=== PATIENT | female | born 1990 | race Caucasian/White ===

== ENCOUNTER 2017-05-03 09:13 | Emergency (ER) | payer OTHER, SELFPAY ==
[2017-05-03 09:21] VITALS: BP 110/60; PULSE 70; RESP 20; TEMP 97.9; O2SAT 98
--- NOTE | 2017-05-03 09:42 | ED PDOC ---
HPI: Female Pain Time Seen by Provider: 05/03/17 09:27 Chief Complaint (Nursing): Female Genitourinary History Per: Patient Onset/Duration Of Symptoms: Days (3) Current Symptoms Are (Timing): Still Present Severity: Mild Pain Scale Rating Of: 2 Quality Of Discomfort: Cramping Associated Symptoms: denies: Nausea, Vomiting, Diarrhea, Urinary Symptoms Additional Complaint(s): Loer abd crampy pain x 3 days. Denioes vaginal bleeding No urinary sxs. Home preg positive. LMP 1 month ago Abnormal Vaginal Bleeding: No Past Medical History Vital Signs: Last Vital Signs Temp 97.9 F 05/03/17 09:18 Pulse 70 05/03/17 09:18 Resp 20 05/03/17 09:18 BP 110/60 05/03/17 09:18 Pulse Ox 98 05/03/17 09:18 - Medical History PMH: No Chronic Diseases - Family History Family History: States: Unknown Family Hx - Home Medications Home Medications: Ambulatory Orders Medication Instructions Recorded traMADol [Ultram] 50 mg PO Q6H PRN #15 tab 05/14/15 Prednisone 50 mg PO DAILY #5 tablet 09/28/15 Prednisone 20 mg PO BID #10 tablet 10/24/15 - Allergies Allergies/Adverse Reactions: Allergies Allergy/AdvReac Type Severity Reaction Status Date / Time No Known Allergies Allergy Verified 05/14/15 13:21 Review of Systems Constitutional: Negative for: Fever Gastrointestinal: Positive for: Abdominal Pain. Negative for: Nausea, Vomiting , Diarrhea Genitourinary Female: Negative for: Dysuria, Frequency, Vaginal Bleeding Musculoskeletal: Positive for: Back Pain Physical Exam - Physical Exam Appears: Positive for: Non-toxic, No Acute Distress Skin: Positive for: Normal Color, Warm, DRY Gastrointestinal/Abdominal: Positive for: Bowel Sounds, Soft, Tenderness (Mild suprapubic) Back: Positive for: Normal Inspection. Negative for: L CVA Tenderness, R CVA Tenderness Extremity: Positive for: Normal ROM Neurologic/Psych: Positive for: Alert, Oriented - Laboratory Results Result Diagrams: 05/03/17 10:04 05/03/17 10:04 - ECG O2 Sat by Pulse Oximetry: 98 Disposition - Clinical Impression Clinical Impression: Threatened - Patient ED Disposition Is Patient to be Admitted: No Counseled Patient/Family Regarding: Studies Performed, Diagnosis, Need For Followup, Rx Given - Disposition Referrals: [facility] [Outside] [facility] [Outside] Disposition: Routine/Home Disposition Time: 11:24 Condition: FAIR Instructions: Threatened Miscarriage (ED) Forms: [employer] (Beninese) Print Language: VENEZUELAN
[2017-05-03 10:16] LABS: BASO % 0.4 % (0.0-2.0); EOS # 0.2 K/uL (0.0-0.7); EOS % 3.9 % (0.0-4.0); HEMATOCRIT 40.9 % (34.0-47.0); LYMPH # 2.6 K/uL (1.0-4.3); LYMPH % 41.8 % (20.0-40.0); MEAN CELL VOLUME 86.9 fl (81.0-99.0); MEAN CORPUSCULAR HEMOGLOBIN 29.5 pg (27.0-31.0); MEAN PLATELET VOLUME 9.1 fl (7.2-11.7); MONO # 0.4 K/uL (0.0-0.8); NEUT % 47.9 % (50.0-75.0); NRBC % 0.1 % (0.0-0.0); RED CELL DISTRIBUTION WIDTH 12.7 % (11.5-14.5); WHITE BLOOD COUNT 6.3 K/uL (4.8-10.8)
[2017-05-03 10:43] LABS: ALB/GLOB RATIO 1.5 (1.0-2.1); ALKALINE PHOSPHATASE 40 U/L (38-126); ALT/SGPT 31 U/L (9-52); AST/SGOT 24 U/L (14-36); BILIRUBIN,TOTAL 0.9 mg/dl (0.2-1.3); BLOOD UREA NITROGEN 11 mg/dl (7-17); CALCIUM 8.6 mg/dL (8.4-10.2); CARBON DIOXIDE 23 mmol/L (22-30); CHLORIDE 102 mmol/L (98-107); GFR AFRICAN-AMERICAN > 60; GLUCOSE,RANDOM 82 mg/dL (65-105); POTASSIUM 3.8 MMOL/L (3.6-5.0); SODIUM 137 mmol/l (132-148); TOTAL PROTEIN 8.3 G/DL (6.3-8.2)
--- NOTE | 2017-05-03 11:08 | US ---
HISTORY: r/o ectopic ; LMP is dated 03/28/2017 as per patient and suggests a 5 week 1 day gestational age at this time. COMPARISON: None available. TECHNIQUE: Transvaginal pelvic ultrasonography was performed in longitudinal and transverse projections. FINDINGS: UTERUS: Uterus is anteverted and measures 8.8 x 6.2 x 4.5 cm with a gestational sac identified within the endometrial cavity measuring 1.8 x 10.7 x1.3 cm containing, yolk sac and pole. cardiac activity is recorded 109 beats per minute. No sonographic evidence to suggest hemorrhage related to the decidual reaction. Myometrial is remarkable for for a solitary, small left anterior fundal subserosal myoma measuring 0.9 x 0.7 x 0.5 cm, slightly hypoechoic compared to the surrounding parenchyma and with limited posterior acoustic shadowing associated. CERVIX: Cervix appears unremarkable with the low cervical length measuring 4.4 cm. RIGHT OVARY: Measures 4.0 x 4.3 x 3.5 cm. No solid mass. Normal flow. A 2.8 x 2.5 x 2.2 cm simple cyst identified at the right rib potentially representing a corpus luteum cyst. Small follicles are otherwise noted at the right ovary. LEFT OVARY: Measures 3.4 x 2.9 x 1.4 cm. No solid mass. Normal flow. FREE FLUID: No significant free fluid noted. OTHER FINDINGS: None. IMPRESSION: A single viable intrauterine gestation is identified with cardiac activity of 109 beats per minute an aneurysm ultrasonic age of 5 weeks 5 days which agrees with LMP derived dates noted above. No hemorrhage grossly evident related to the decidual reaction at this time. Likely right corpus luteum cyst. Clinical and possible sonographic follow-up are advised.
== END 2017-05-03 12:03 | disposition home or self-care (01) ==
LOC: H.ER 09:13
DX: O20.0 Threatened abortion (principal); Z3A.01 Less than 8 weeks gestation of pregnancy

== ENCOUNTER 2017-05-15 11:13 | Emergency (ER) | payer OTHER ==
[2017-05-15 11:33] VITALS: BP 110/40; PULSE 67; RESP 18; TEMP 98.2; O2SAT 100
--- NOTE | 2017-05-15 11:55 | ED PDOC ---
HPI: Female Pain Time Seen by Provider: 05/15/17 11:20 Chief Complaint (Nursing): Abdominal Pain History Per: Patient Onset/Duration Of Symptoms: Days (13) Current Symptoms Are (Timing): Intermittent Episodes Severity: Mild Pain Scale Rating Of: 2 Quality Of Discomfort: Cramping Additional Complaint(s): Lower abd crampingx 2 weeks. Seen in ED with same with US showing IUP. Denies vag bleeding. No dysuria No NVD Abnormal Vaginal Bleeding: No Past Medical History Vital Signs: Last Vital Signs Temp 98.2 F 05/15/17 11:29 Pulse 67 05/15/17 11:29 Resp 18 05/15/17 11:29 BP 110/40 L 05/15/17 11:29 Pulse Ox 100 05/15/17 11:29 - Medical History PMH: No Chronic Diseases - Family History Family History: States: Unknown Family Hx - Home Medications Home Medications: Ambulatory Orders Medication Instructions Recorded traMADol [Ultram] 50 mg PO Q6H PRN #15 tab 05/14/15 Prednisone 50 mg PO DAILY #5 tablet 09/28/15 Prednisone 20 mg PO BID #10 tablet 10/24/15 - Allergies Allergies/Adverse Reactions: Allergies Allergy/AdvReac Type Severity Reaction Status Date / Time No Known Allergies Allergy Verified 05/14/15 13:21 Review of Systems Gastrointestinal: Positive for: Abdominal Pain Genitourinary Female: Negative for: Dysuria, Frequency, Vaginal Bleeding Musculoskeletal: Positive for: Back Pain Physical Exam - Physical Exam Appears: Positive for: Non-toxic, No Acute Distress Skin: Positive for: Normal Color, Warm, DRY Gastrointestinal/Abdominal: Positive for: Bowel Sounds, Soft. Negative for: Tenderness Pelvic Exam: Positive for: External Exam Normal, No Masses. Negative for: Active Bleeding, Blood, Tender Adnexa, Tender Uterus - ECG O2 Sat by Pulse Oximetry: 100 Disposition - Clinical Impression Clinical Impression: Round ligament pain - Patient ED Disposition Is Patient to be Admitted: No Counseled Patient/Family Regarding: Studies Performed, Diagnosis, Need For Followup - Disposition Referrals: Provider KENY, [Primary Care Provider] - [facility] [Outside] Disposition: Routine/Home Disposition Time: 12:58 Condition: FAIR Instructions: Abdominal Pain in (ED) Forms: [employer] (Albanian) Print Language: [place] ISLAND[place]
== END 2017-05-15 13:05 | disposition home or self-care (01) ==
LOC: H.ER 11:13 → SUPCPDRO 11:13 → H.ER 13:05
DX: O26.899 Other specified pregnancy related conditions, unspecified trimester (principal)

== ENCOUNTER 2017-07-24 10:10 | Emergency (ER) | payer SELFPAY ==
[2017-07-24 10:13] VITALS: RESP 16; TEMP 98; BMI 22.4
--- NOTE | 2017-07-24 10:31 | ED PDOC ---
HPI: Abdomen Time Seen by Provider: 07/24/17 10:14 Chief Complaint (Nursing): Abdominal Pain Chief Complaint (Provider): Abdominal pain History Per: Patient Additional Complaint(s): 27 yo female, no PMH, , presents to ED at 18 weeks with complaints of having lower abdominal pain on and off x 1 week, denies vaginal bleeding or LOF. Pain is worse at night and with movement. Pt has not been taking anything for pain Past Medical History Reviewed: Nursing Documentation, Vital Signs Vital Signs: Last Vital Signs Temp 98.0 F 07/24/17 10:12 Pulse 81 07/24/17 10:12 Resp 16 07/24/17 10:12 BP 109/54 L 07/24/17 10:12 Pulse Ox 100 07/24/17 10:31 - Medical History PMH: No Chronic Diseases - Surgical History Surgical History: No Surg Hx - Family History Family History: States: Unknown Family Hx - Living Arrangements Living Arrangements: With Family - Social History Current smoker - smoking cessation education provided: No Alcohol: None Drugs: Denies - Home Medications Home Medications: Ambulatory Orders Medication Instructions Recorded traMADol [Ultram] 50 mg PO Q6H PRN #15 tab 05/14/15 Prednisone 50 mg PO DAILY #5 tablet 09/28/15 Prednisone 20 mg PO BID #10 tablet 10/24/15 - Allergies Allergies/Adverse Reactions: Allergies Allergy/AdvReac Type Severity Reaction Status Date / Time No Known Allergies Allergy Verified 07/24/17 10:15 Review of Systems ROS Statement: Except As Marked, All Systems Reviewed And Found Negative Gastrointestinal: Positive for: Abdominal Pain Physical Exam - Reviewed Nursing Documentation Reviewed: Yes Vital Signs Reviewed: Yes - Physical Exam Appears: Positive for: Well, Non-toxic, No Acute Distress Head Exam: Positive for: ATRAUMATIC, NORMAL INSPECTION, NORMOCEPHALIC Skin: Positive for: Normal Color, Warm, DRY Eye Exam: Positive for: EOMI, Normal appearance, PERRL ENT: Positive for: Normal ENT Inspection Neck: Positive for: Normal, Painless ROM Cardiovascular/Chest: Positive for: Regular Rate, Rhythm Respiratory: Positive for: CNT, Normal Breath Sounds Gastrointestinal/Abdominal: Positive for: Normal Exam, Bowel Sounds, Soft. Negative for: Tenderness Back: Positive for: Normal Inspection Extremity: Positive for: Normal ROM Neurologic/Psych: Positive for: Alert, Oriented - ECG O2 Sat by Pulse Oximetry: 100 Medical Decision Making Medical Decision Making: US 18 w SLIUP, HR 141 Dip (-) nites, leuks or blood Given Tylenol PO for pain, good relief obtained Disposition - Clinical Impression Clinical Impression: Abdominal pain during - Patient ED Disposition Is Patient to be Admitted: No - Disposition Disposition: Routine/Home Disposition Time: 12:47 Condition: STABLE Additional Instructions: Tylenol safe in for pain, take as directed Instructions: Abdominal Pain in (ED) Forms: [employer] (Hebrew)
[2017-07-24 12:58] LABS: SQUAMOUS EPITHIAL 1 /hpf (0-5); URINE BACTERIA RARE (<OCC); URINE BILIRUBIN NEGATIVE (NEGATIVE); URINE BLOOD NEGATIVE (NEGATIVE); URINE CLARITY SLIGHTY-CLOUDY (Clear); URINE COLOR STRAW (YELLOW); URINE GLUCOSE (UA) NEG (Normal); URINE LEUKOCYTE ESTERASE NEG Leu/uL (Negative); URINE NITRATE NEGATIVE (NEGATIVE); URINE PROTEIN NEGATIVE (NEGATIVE); URINE UROBILINOGEN 0.2-1.0 mg/dL (0.2-1.0)
--- NOTE | 2017-07-24 12:59 | US ---
PROCEDURE: OB Pelvic Ultrasound HISTORY: 18 weeks pain. LMP 03/28/2017. COMPARISON: None available. FINDINGS: UTERUS: Single Live intrauterine gestation. BPD: 4.3 centimeter compatible with estimated gestational age of 19 weeks, 0 days. HC: 15.4 cm compatible with estimated gestational age of 18 weeks, 3 days. HC: 13.3 cm compatible with estimated gestational age of 18 weeks, 5 days. FL: 2.7 cm compatible with estimated gestational age of 18 weeks, 2 days. Presentation: Variable. Placenta: Posterior. age (Ultrasound estimated): 18 weeks, 4 days Date of delivery (Ultrasound estimated) : 12/21/2017 Heart rate: 141 bpm. Katie-gestational hemorrhage: None. CERVIX: Long and closed. No cervical abnormality seen. RIGHT OVARY: Measures 4.4 x 2.7 x 2.7 cm. No mass. Normal flow. LEFT OVARY: Measures 3.3 x 2.5 x 2.1 cm. No mass. Normal flow. FREE FLUID: None. OTHER FINDINGS: None. IMPRESSION: Single live intrauterine gestation with average gestational age of 18 weeks, 4 days. heart rate 141 beats per minute.
[2017-07-24 13:00] VITALS: BP 110/60; PULSE 80; O2SAT 98
== END 2017-07-24 12:59 | disposition home or self-care (01) ==
LOC: H.ER 10:10
DX: O26.892 Other specified pregnancy related conditions, second trimester (principal); Z3A.18 18 weeks gestation of pregnancy

== ENCOUNTER 2017-12-24 17:53 | Inpatient (IN) | payer MEDICAID, SELFPAY ==
[2017-12-24] MEDS ORDERED: Lactated Ringer's 1,000 ML IV ONE (18:41)
[2017-12-24] MEDS ORDERED: ceFAZolin IV 2 gm in Dextrose 2 GM/50 ML BAG IVPB ONE (18:41)
[2017-12-24] MEDS ORDERED: Oxytocin 30 units/LR 500ML 30 U/500 ML BAG IV ONE (18:58)
[2017-12-24] MEDS ORDERED: Lactated Ringer's 1,000 ML IV SCH (19:00)
[2017-12-24 19:07] LABS: BASO % 0.5 % (0.0-2.0); EOS # 0.1 K/uL (0.0-0.7); EOS % 1.2 % (0.0-4.0); LYMPH # 2.1 K/uL (1.0-4.3); LYMPH % 29.5 % (20.0-40.0); MEAN CELL VOLUME 90.4 fl (81.0-99.0); MEAN CORPUSCULAR HEMOGLOBIN 31.2 pg (27.0-31.0); MEAN CORPUSCULAR HGB CONC 34.5 g/dL (33.0-37.0); MEAN PLATELET VOLUME 8.4 fl (7.2-11.7); MONO # 0.4 K/uL (0.0-0.8); MONO % 6.3 % (0.0-10.0); NEUT # 4.4 K/uL (1.8-7.0); NEUT % 62.5 % (50.0-75.0); RBC 3.84 Mil/uL (3.80-5.20); RED CELL DISTRIBUTION WIDTH 13.4 % (11.5-14.5); WHITE BLOOD COUNT 7.1 K/uL (4.8-10.8)
[2017-12-24] MEDS ORDERED: Morphine 5 mg/10 ml preservative-free Inj(Duramorph) ONE (19:18)
[2017-12-24] MEDS ORDERED: ePHEDrine 50 mg/ml Inj ONE (19:18)
[2017-12-24] MEDS ORDERED: Phenylephrine 10 mg/ml Inj ONE (19:18)
[2017-12-24] MEDS ORDERED: ceFAZolin IV 2 gm in Dextrose 0 GM/0 ML BAG IVPB ONE (19:34)
[2017-12-24] MEDS ORDERED: DiphenhydrAMINE 50 mg/ml Inj IVP PRN (21:29)
[2017-12-24] MEDS ORDERED: Oxycodone/Acetaminophen 5/325 mg Tab PO PRN ×2 (21:35)
[2017-12-24] MEDS ORDERED: Simethicone 80 mg Chewtab PO SCH (22:00)
--- NOTE | 2017-12-24 22:55 | OBDS ---
DELIVERY PERSONNEL Delivery Doctor: Francisco Petersen MD Machine Grinder: Marivel Gillespie RN (Annotations: Data stored by [facility] on behalf of user) Anesthesiologist: Dr. Vela Resident: Dr. Kerri Orourke MATERNAL INFORMATION Delivery Anesthesia: Spinal Medications in Delivery: Pitocin Provider Comments: Preop Diagnosis: 40.1wk; decreased fm; nonreassuring status postop diagnosis: same proced: prim cd surg:orossetos 1st asst: lisa pgy2 2nd asst: s:lele pgy2 anesth: dr vela- spinal ebl 700cc complic: none findings: viable female; clear amniotic fluid; 6mh61my; 9_9;terminal meconium; cord ph 7.32 mccoy to drainage pt to rr. neon to rr w/ pt LABOR SUMMARY EDC: 12/23/2017 00:00 No. Babies in Womb: 1 Attempted: No Labor Anesthesia: Spinal LABOR INFORMATION Oxytocin: N/A Group B Beta Strep: Negative Antibiotics # of Doses: 1 Antibiotics Time of Last Dose: 1944 Steroids Given: None Reason Steroids Not Administered: Not Applicable MEMBRANES Membranes Rupture Method: Artificial Rupture of Membranes: 12/24/2017 20:48 Length of Rupture (hrs): 0.00 Amniotic Fluid Color: Clear Amniotic Fluid Amount: Moderate STAGES OF LABOR Stage 3 hrs: 0 Stage 3 min: 1 CSECTION DELIVERY Primary Indication: Nonreassuring Status CSection Urgency: Non Elective CSection Incidence: Primary Labor: No Labor CSection Incision: Lower Uterine Transverse BABY A INFORMATION Delivery Date/Time: 12/24/2017 20:48 Method of Delivery: Born in Route : No : N/A Forceps: N/A Vacuum Extraction: N/A Shoulder Dystocia : No SHOULDER DYSTOCIA BABY A Infant Delivery Date/Time: 12/24/2017 20:48 PLACENTA INFORMATION BABY A Placenta Delivery Time : 12/24/2017 20:49 Placenta Method of Delivery: Manual Removal Placenta Status: Delivered SCORES BABY A Heart Rate 1 min: >100 bpm Resp Effort 1 min: Good Cry Reflex Irritability 1 min: Cough or Sneeze or Pulls Away Muscle Tone 1 min: Active Motion Color 1 min: Body [place] [address], Extremities Blue Resuscitation Effort 1 min: Tactile Stimulation SCORE 1 MIN: 9 Heart Rate 5 min: >100 bpm Resp Effort 5 min: Good Cry Reflex Irritability 5 min: Cough or Sneeze or Pulls Away Muscle Tone 5 min: Active Motion Color 5 min: Body [address], Extremities Blue Resuscitation Effort 5 min: N/A SCORE 5 MIN: 9 INFORMATION BABY A Gestational Age at Delivery: 40.1 Gestational Status: Term Infant Outcome : Liveborn Infant Condition : Stable Sex: Female WEIGHT/LENGTH BABY A Birthweight (gms): 3670 Infant Weight (lb): 8 Weight (oz): 1 CORD INFORMATION BABY A No. Cord Vessels: 3 Nuchal Cord : N/A Cord Blood Taken: Yes Suction: Mouth; Nose ASSESSMENT BABY A Complications: None Physical Findings at Delivery: Within Normal Limits Infant Respirations: Appears Normal Forest Fire Officer/ALS Called : No Care By: Vee Mason Rn Transferred To: Remains with Mother
--- NOTE | 2017-12-24 23:42 | OBHP ---
Datetime: 12/24/2017 18:47 IP Adm Impression: Postterm, intrauterine IP Admit Plan: Admit to unit; Initiate Section protocol Admit Comment, IP Provider: Lalito [id number] Patient is a 40.1 weeks gestation with an DOM of 12/23/17 confirmed with a 14 week U/S done on 06/30/17. She was sent from the [facility] for decreased movement since this morning mother stated she only felt 4 kicks since the morning. Dr. Manning is her provider. Patient had been having a f ew contractions, denies vaginal bleeding, denies LOF. Patient had water at 4pm and a donut to eat to day. Denies dizziness, headaches, blurry vision, chest pain, sob, NVDC, or burning on urination. PNC: Patient is up to date on care and labs are unremarkable OBHx: denies any complications Gynhx: last sexual activity was 2 months ago PMhx: Anemia Meds: Iron pills and prenatals Allergies: NKDA Fhx: None Social Hx: Denies alcohol, smoking or drug use Surg hx:None Hosp: None I: 40 week IUP decreased movement A/P - IVF, CBC , type and screen, type and cross - C section - Monitor tracings Jenny Woods MD PGY-[address] Gudino obh attending addendum Clarification of above: Pt presented to [facility] w/ c/o decreased fm today. prolonged nst nr w/ episode of min to absent variab ility. she was referred to [facility] for further eval. she denies srom, ctxs, abd pain or vag bleeding. o: nst nr w/ episode of min to absent variability i: decrease fm nonreactive nst w/ persistent episode of min to absent variability p: findings d/w pt and fob and option of CD discussed vs induction. an informed consent was obtain ed for CD. Pelvic Type - PN: Adequate Extremities - PN: Normal Abdomen - PN: Normal Back - PN: Normal Breast - PN: Not Done Lungs - PN: Normal Heart - PN: Normal HEENT - PN: Normal General - PN: Normal Presentation-Admit: Vertex FHR - Baseline A Provider: 135 Contraction Comments Provider: irreg not appreciated by pt EGA AdmitDate IP: 40.1 Vital Signs Provider: Reviewed IP Chief Complaint: Decreased movement; evaluation NICHD Variability Prov Fetus A: Minimal - Undetectable to <5bpm NICHD Accel Fetus A IP Provider: 10X10 NICHD Decel Fetus A IP Provider: None (Annotations: Data stored by CPN on behalf of user) Dilatation, Provider: 0 Effacement, Provider: 0 Station, Provider: -3 Genitourinary Exam: Normal
--- NOTE | 2017-12-24 23:47 | OBADHP ---
Datetime: 12/24/2017 18:47 Admit Comment, IP Provider: Aryan [id number] Patient is a 40.1 weeks gestation with an DOM of 12/23/17 confirmed with a 14 week U/S done on 06/30/17. She was sent from the [facility] for decreased movement since this morning mother stated she only felt 4 kicks since the morning. Dr. Manning is her provider. Patient had been having a f ew contractions, denies vaginal bleeding, denies LOF. Patient had water at 4pm and a donut to eat to day. Denies dizziness, headaches, blurry vision, chest pain, sob, NVDC, or burning on urination. PNC: Patient is up to date on care and labs are unremarkable OBHx: denies any complications Gynhx: last sexual activity was 2 months ago PMhx: Anemia Meds: Iron pills and prenatals Allergies: NKDA Fhx: None Social Hx: Denies alcohol, smoking or drug use Surg hx:None Hosp: None I: 40 week IUP decreased movement A/P - IVF, CBC , type and screen, type and cross - C section - Monitor tracings Jenny Woods MD PGY-[address] Gudino ob attending addendum Clarification of above: Pt presented to [facility] w/ c/o decreased fm today. prolonged nst nr w/ episode of min to absent variab ility. she was referred to [facility] for further eval. she denies srom, ctxs, abd pain or vag bleeding. o: nst nr w/ episode of min to absent variability i: decrease fm nonreactive nst w/ persistent episode of min to absent variability p: findings d/w pt and fob and option of CD discussed vs induction. an informed consent was obtain ed for CD. Pelvic Type - PN: Adequate Extremities - PN: Normal Abdomen - PN: Normal Back - PN: Normal Breast - PN: Not Done Lungs - PN: Normal Heart - PN: Normal HEENT - PN: Normal General - PN: Normal Presentation-Admit: Vertex FHR - Baseline A Provider: 135 Contraction Comments Provider: irreg not appreciated by pt Vital Signs Provider: Reviewed IP Chief Complaint: Decreased movement; evaluation NICHD Variability Prov Fetus A: Minimal - Undetectable to <5bpm NICHD Accel Fetus A IP Provider: 10X10 NICHD Decel Fetus A IP Provider: None (Annotations: Data stored by CPN on behalf of user) Dilatation, Provider: 0 Effacement, Provider: 0 Station, Provider: -3 Genitourinary Exam: Normal EGA AdmitDate IP: 40.1 IP Adm Impression: Postterm, intrauterine IP Admit Plan: Admit to unit; Initiate Section protocol
[2017-12-25] MEDS ORDERED: Lactated Ringer's 1,000 ML IV SCH ×2 (00:45→01:06)
[2017-12-25] MEDS ORDERED: Oxycodone/Acetaminophen 5/325 mg Tab PO PRN ×2 (01:06)
[2017-12-25] MEDS ORDERED: DiphenhydrAMINE 50 mg/ml Inj IVP PRN (01:06)
[2017-12-25] MEDS: Simethicone 80 mg Chewtab PO SCH ×4 (04:00→22:03)
[2017-12-25 06:32] LABS: MEAN CORPUSCULAR HEMOGLOBIN 32.4 pg (27.0-31.0); MEAN CORPUSCULAR HGB CONC 36.4 g/dL (33.0-37.0); RBC 3.22 Mil/uL (3.80-5.20); WHITE BLOOD COUNT 7.9 K/uL (4.8-10.8)
[2017-12-25 06:53] LABS: HEMOGLOBIN 10.4 g/dL (12.0-16.0)
--- NOTE | 2017-12-25 08:22 | OBPPN ---
Datetime: 12/25/2017 07:06 PP Pain Prov: Within normal limits PP Nausea Prov: Denies PP Flatus Prov: No PP BM Prov: No PP Breasts Prov: Not Done PP Heart Prov: Normal PP Lungs Prov: Normal PP Abdomen/Uterus Prov: Normal PP Lochia Prov: Normal PP Vulva/Perineum Prov: Normal PP CVA Tenderness Prov: Not Done PP Extremities Prov: Normal PP C/S Incision Prov: Normal PP Progress Prov: Normal PP Impression Prov: Normal progression PP Plan Prov: Continue present management PP Progress Note Prov: S: 27 YO delivered female via primary stat on 12/24/17 for non-r eassuring FHR. Pt is seen and examined by bedside this AM, no overnight events. FOB and baby present by bedside. Pt is voiding via mccoy, mild abdominal pain, prn pain meds availible as needed. Encourag ed to ambulate later today. [place] has decreased since delivery. No flatus/BM. Denies palpatations, n/ v/d/c, chills and fevers. 0 O: VS: stable, pt remains afebrile GEN: NAD Cardio: S1S2, no murmurs Lungs: clear breath sounds b/l, no wheezing Abdomen: BS+, +tenderness to palpation areas around the incision. Dressing intact, remains dry. No erythema, edema noted in areas surrounding the dressing. Uterus is firm and at the level of the umbi licus. Appropriate tenderness. EXT: No edema, calves nontender NEURO/PSYCH: AAOx3, no grossly focal deficits, preserved affect and mood. Assessment/Plan: 27 YO delivered female via primary on 12/24/17 for non-reassuring FH R. Doing well POD 1. -OOB with caution -Mccoy to be d/c this AM -Dressing to be removed later today (after 24hrs) -SCDs for DVT prophylaxis, encouraged ambulating -Percocet and Motrin for pain as needed -Senakot 17.2mg po QHS -post CBC for h/h 10.4/28.7 -Encourage Citlali Garcia, PGY II OB Hospitalist Addendum: Pt seen and examined by me. Agree w/ above. POD 1 s/p c/s for NRFHT, do ing well, breast feeding. Incision w/ clean bandage. Advance diet as tolerated. OOB today. (ES) Vital Signs Provider PP: Reviewed; Within Normal Limits
[2017-12-25] MEDS: Multivitamin With Minerals Tab PO SCH (08:23)
[2017-12-25] MEDS ORDERED: Multivitamin With Minerals Tab PO SCH (09:00)
--- NOTE | 2017-12-25 20:23 | OP ---
PROCEDURE DATE: 12/24/2017 PREOPERATIVE DIAGNOSES: 1. A 40.1-week gestation. 2. Decreased movement. 3. Nonreassuring status. POSTOPERATIVE DIAGNOSES: 1. A 40.1-week gestation. 2. Decreased movement. 3. Nonreassuring status. PROCEDURE: Primary low transverse section. SURGEON: Jose Ramon Gudino M.D. TECHNICAL REP: Caesar Manning, PGY-2 SECOND PHARMACEUTICAL DEVELOPMENT TECHNICIAN: Jennifer Garcia, PGY-2 TYPE OF ANESTHESIA: Spinal. ANESTHESIA ADMINISTERED BY: Dr. Vela. ESTIMATED BLOOD LOSS: 700 mL. COMPLICATIONS: None. FINDINGS: Showed a viable female with clear amniotic fluid and terminal meconium, weight was 8 pound 12 ounces. 's of 9 and 9, cord pH 7.32. Drains: Bhakta catheter placed for drainage. Destiantion: The patient sent to recovery room and to recovery room. INDICATIONS: The patient is a 27-year-old female 1 at 40.1 weeks, who presented to L&D for further observation . She had presented to [facility] clinic earlier today with complaints of decreased movement since the morning. The patient was placed on the monitor and had an extended NST, which was found to be nonreactive with segments of minimal to absent variability. She was referred to to labor and delivery for further evaluation and observation. Her NST on labor and delivery was noted to have segments of minimal to absent variability. Followed by some variability, the NST remained nonreactive. Findings of minimal to absent variability discussed, decreased movement and patient being remote from delivery. A section was discussed with the patient versus induction and she and spouse agreed to primary section and informed consent was obtained. DESCRIPTION OF PROCEDURE: The patient was taken to the operating room where she underwent her spinal anesthesia. She was then placed in a dorsal supine position with a leftward tilt and a Bhakta catheter was placed patricio drainage. She was prepped and draped in the sterile fashion. A Pfannenstiel skin incision was made with the scalpel and this was carried out to the underlying fascia, which was incised in the midline and extended bilaterally. The inferior rectus fascial edge was grasped with Kochers and the underlying rectus muscle was dissected off. The same procedure was performed along the superior rectus fascial edge. The peritoneum was identified, tented upward and incised superiorly and inferiorly. The bladder blade was placed and the bladder flap was created using sharp and blunt dissection. A low uterine transverse incision was made and the incision was extended digitally followed by use of bandage scissors in a curvilinear fashion. The amniotic membrane was ruptured. Clear fluid was noted and the was found to be in cephalic presentation and delivered. Some terminal meconium was noted with delivery. The mouth and nares were suctioned. The cord was clamped and cut and the baby was handed off to the awaiting sales audit clerk. The placenta was expressed and some more terminal meconium was noted. The uterus was exteriorized and cleared of all clots and debris. The uterine incision was reapproximated with 0 Vicryl in a running locked fashion followed by an imbricated stitch of O Monocryl. The abdomen was irrigated and cleared of all clots and debris. The uterus was returned to the abdomen and the pelvic cavity was irrigated and cleared of all clots and debris. The uterine incision was reinspected and good hemostasis was confirmed. The peritoneum was reapproximated with 2-0 Vicryl in a running fashion. The fascia was reapproximated with 0 Vicryl in a running fashion beginning the left lateral corner going to the midline and another stitch beginning the right lateral corner going to the midline. The wound was irrigated. Good hemostasis confirmed. The subcutaneous tissue was reapproximated with 2-0 plain interrupted sutures. The skin was reapproximated with 3-0 Vicryl in a subcuticular fashion. Steri strips were applied. All sponge, lap, and needle counts were correct and the patient returned to recovery room in satisfactory condition. Jose Ramon Gudino MD QUINN
[2017-12-26] MEDS: Lansinoh for Breast Feeding Mothers TP PRN ×2 (00:44→09:03)
[2017-12-26] MEDS: Simethicone 80 mg Chewtab PO SCH ×4 (04:15→22:08)
[2017-12-26] MEDS: Multivitamin With Minerals Tab PO SCH (08:08)
--- NOTE | 2017-12-26 10:47 | OBPPN ---
Datetime: 12/26/2017 08:14 PP Pain Prov: Within normal limits PP Nausea Prov: Denies PP Flatus Prov: Yes PP BM Prov: No PP Heart Prov: Normal PP Lungs Prov: Normal PP Abdomen/Uterus Prov: Normal PP Lochia Prov: Normal PP CVA Tenderness Prov: Normal PP Extremities Prov: Normal PP C/S Incision Prov: Normal PP Progress Prov: Normal PP Comments Phys Exam Prov: hgb 10.4 PP Impression Prov: Normal progression PP Plan Prov: Continue present management PP Progress Note Prov: POD 2 27 y/o now seen and examined at bedside s/p primary due to non-reassuring FHT on P OD 2. Pt reports pain at the site and pain is controlled with pain medications. Pt is pina ating po diet well. Pt reports passing gas per rectum but no BM yet. Voiding w/o difficulty. Denies chest pain, dyspnea, headache, dizziness or calf pain. Physical Exam: General: A_O, resting comfortably in bed, NAD HEENT: oral mucosa moist Lungs: CTA B/L, no wheezing, rhonchi or rales CVS: RRR, normal S1, S2 ABD: ND, +BS; Incision: Incision clean, dry and intact. No induration, redness or fluctuation. Steri strips int act, no dehiscence EXT: no edema, negative Prieto's sign Neuro/psych: AAOX3 Assessment: 27 yo now s/p primary doing well on POD 2 Plan: Continue regular diet as tolerated. SCD for DVT prophylaxis Percocet and Ibuprofen for pain management Colace for constipation consultation Encourage and ambulation. Kavya, pgy-2 Case d/w on-call OB Hospitalist obh attending addendum: pt seen _ examihed by me. agree w/ above assessment and plan. benefits of reinforced . IP PP Procedures: None Vital Signs Provider PP: Reviewed; Within Normal Limits
--- NOTE | 2017-12-26 21:41 | CP.PCM.PN ---
Subjective - Date & Time of Evaluation Date of Evaluation: 12/26/17 Time of Evaluation: 21:31 - Subjective Subjective: Anesthesiology Note: This 27 year old female second day post spinal anesthesia for section has headache occipital in location ,worse on sitting ,relieved by lying down.This is possibly post dural puncture headache. Will treat conservatively and re-evaluate in am. Ashish Muñiz MD Objective - Vital Signs/Intake and Output Vital Signs (last 24 hours): Temp Pulse Resp BP Pulse Ox 98.4 F 68 18 116/72 100 12/24/17 19:30 12/24/17 19:30 12/24/17 19:30 12/24/17 19:30 12/24/17 19:30 - Medications Medications: Current Medications Diphenhydramine HCl (Benadryl) 50 mg IVP Q6 PRN PRN Reason: Itching / Pruritus Ibuprofen (Motrin Tab) 600 mg PO Q6H PRN PRN Reason: Pain, Mild (1-3) Last Admin: 12/26/17 04:14 Dose: 600 mg Ketorolac Tromethamine (Toradol) 30 mg IVP Q6 PRN PRN Reason: For PCEA Breakthrough Pain Lanolin (Lansinoh For Breast Feeding Mothers) 1 applic TP Q4 PRN PRN Reason: nipple pain Last Admin: 12/26/17 09:03 Dose: 1 applic Multivitamins/Minerals (Therapeutic-M Tab) 1 tab PO DAILY PRASANNA Last Admin: 12/26/17 08:08 Dose: 1 tab Ondansetron HCl (Zofran Inj) 4 mg IVP Q6 PRN PRN Reason: Nausea/Vomiting Oxycodone/Acetaminophen (Percocet 5/325 Mg Tab) 1 tab PO Q4 PRN PRN Reason: Pain, moderate (4-7) Stop: 12/27/17 21:36 Last Admin: 12/26/17 20:05 Dose: 1 tab Oxycodone/Acetaminophen (Percocet 5/325 Mg Tab) 2 tab PO Q4 PRN PRN Reason: Pain, severe (8-10) Stop: 12/27/17 21:36 Sennosides (Senokot Tab) 17.2 mg PO HS PRASANNA Last Admin: 12/25/17 22:02 Dose: 17.2 mg Simethicone (Mylicon Chew Tab) 80 mg PO Q6 PRASANNA Last Admin: 12/26/17 16:07 Dose: 80 mg - Labs Labs: 12/25/17 04:45
[2017-12-26] MEDS: Lactated Ringer's 1,000 ML IV SCH (22:47)
[2017-12-27] MEDS: Simethicone 80 mg Chewtab PO SCH ×4 (04:49→22:04)
[2017-12-27] MEDS: Lactated Ringer's 1,000 ML IV SCH ×3 (06:29→19:00)
[2017-12-27] MEDS: Multivitamin With Minerals Tab PO SCH (08:11)
[2017-12-27] MEDS: Apap-Butalbital-Caffeine 325-50-40mg Tab PO PRN ×2 (08:12→20:50)
--- NOTE | 2017-12-27 10:41 | OBPPN ---
Datetime: 12/27/2017 06:17 PP Pain Prov: Within normal limits PP Nausea Prov: Denies PP Flatus Prov: Yes PP BM Prov: Yes PP Heart Prov: Normal PP Lungs Prov: Normal PP Abdomen/Uterus Prov: Normal PP Lochia Prov: Normal PP Impression Prov: Normal progression PP Plan Prov: Discharge PP Progress Note Prov: POD3 s/p stat due to decreased FM is c/o headache exacerbated by sitting upright and walking, and alleviated by laying supine. She reports headaches do not interfe re with feeding. Patient denied any n/v/dizziness, neck stiffness, tinnitus or visual changes. Patien t states lochia is like menses, + for flatus _ BM,and breast feeding is going well. P/E: Patient laying in supine position Cardio: s1s2 auscultated, no murmurs Resp: Breath sounds auscultated Bilaterally Abd: fundus at UB Ext: nontender A/P: POD3 s/p stat due to decreased FM 1. Encourage breast feeding. 2. Contraception discussed. 3. Ambulate as tolerated. 4. DC today. 5. Ibuprofen 600mg PO Q6 PRN and percocet 5-325 mg PO Q4 PRN Case discussed with attending Ena Peralta, PGY-[address] Norman: Patient continues to have a spinal SIDDIQI - will continue to watch and delay di scharge until tomorrow. If symptoms are not improved, patient may need blood patch Vital Signs Provider PP: Reviewed
[2017-12-28] MEDS: Lactated Ringer's 1,000 ML IV SCH ×4 (00:52→21:30)
[2017-12-28] MEDS: Apap-Butalbital-Caffeine 325-50-40mg Tab PO PRN ×4 (04:15→21:09)
[2017-12-28] MEDS: Simethicone 80 mg Chewtab PO SCH ×4 (05:30→22:01)
[2017-12-28] MEDS: Multivitamin With Minerals Tab PO SCH (08:54)
[2017-12-28] MEDS: Lansinoh for Breast Feeding Mothers TP PRN (08:55)
--- NOTE | 2017-12-28 10:32 | CP.PCM.PN ---
Subjective - Date & Time of Evaluation Date of Evaluation: 12/28/17 Time of Evaluation: 10:15 - Subjective Subjective: Patient has positional headache after spinal for c section on Wednesday. The pain has improved but she still complains of pressure-like pain at the top of the head when upright. She denies nausea, vomiting, photo or phonophobia. She's able to ambulate to the bathroom but it's uncomfortable. R/B/A were explained to her, she elected to undergo sphenopalatine ganglion block. Consent was signed and placed in the chart. Patient was placed in a supine position, with shoulder roll. Using a 1.5-inch 20G catheter, 1.5cc of 4% lidocaine was deposited into each nares. After 3 minutes, a Q-tip soaked in .5% bupivacaine was inserted until resistance was met into each nares. Patient tolerated procedure well. After 5 minutes, the Q- tip was removed. Vital signs were stable throughout. Will follow. Objective - Vital Signs/Intake and Output Vital Signs (last 24 hours): Temp Pulse Resp BP Pulse Ox 98.4 F 68 18 116/72 100 12/24/17 19:30 12/24/17 19:30 12/24/17 19:30 12/24/17 19:30 12/24/17 19:30 - Medications Medications: Current Medications Acetaminophen/Butalbital/Caffeine (Fioricet) 1 tab PO Q4 PRN PRN Reason: Headache Last Admin: 12/28/17 08:52 Dose: 1 tab Diphenhydramine HCl (Benadryl) 50 mg IVP Q6 PRN PRN Reason: Itching / Pruritus Lactated Ringer's (Lactated Ringer's) 1,000 mls @ 200 mls/hr IV .Q5H PRASANNA Last Admin: 12/28/17 05:43 Dose: 200 mls/hr Ibuprofen (Motrin Tab) 600 mg PO Q6H PRN PRN Reason: Pain, Mild (1-3) Last Admin: 12/28/17 05:51 Dose: 600 mg Ketorolac Tromethamine (Toradol) 30 mg IVP Q6 PRN PRN Reason: For PCEA Breakthrough Pain Lanolin (Lansinoh For Breast Feeding Mothers) 1 applic TP Q4 PRN PRN Reason: nipple pain Last Admin: 12/28/17 08:55 Dose: 1 applic Multivitamins/Minerals (Therapeutic-M Tab) 1 tab PO DAILY PRASANNA Last Admin: 12/28/17 08:54 Dose: 1 tab Ondansetron HCl (Zofran Inj) 4 mg IVP Q6 PRN PRN Reason: Nausea/Vomiting Sennosides (Senokot Tab) 17.2 mg PO HS PRASANNA Last Admin: 12/27/17 22:03 Dose: 17.2 mg Simethicone (Mylicon Chew Tab) 80 mg PO Q6 PRASANNA Last Admin: 12/28/17 05:30 Dose: 80 mg - Labs Labs: 12/25/17 04:45 - Neck Exam Neck Exam: Full ROM Additional comments: Nontender Assessment and Plan - Assessment and Plan (Free Text) Assessment: 27 yo woman w/ likely post-dura puncture headache. She's s/p sphenopalatine ganglion block. Her headache is not severe enough to warrant blood patch and associated risks. - patient may be discharged today if headache improves from sphenopalatine ganglion block - supportive care, patient can return as outpatient for further management as necessary
--- NOTE | 2017-12-28 11:06 | OBPPN ---
Datetime: 12/28/2017 07:39 PP Pain Prov: Within normal limits PP Nausea Prov: Present PP Flatus Prov: Yes PP BM Prov: No PP Heart Prov: Normal PP Lungs Prov: Normal PP Lochia Prov: Normal PP Extremities Prov: Normal PP Impression Prov: Normal progression PP Progress Note Prov: POD3 s/p stat with spinal headache reports headache is 3/10 to day compared to 8. Patient was given fiorcet which she states helped. Patient dressing is clean, d ry, and intact, fundus @ umbilicus, and lochia like menses. She reports +Flatus, -BM. PE: Patient laying supine in bed Cardio: s1s2, no murmurs Resp: clear b/l Abd: BS+ Ext: nontender A/P: POD3 s/p stat with spinal headache ameloriated with fiorcet. 1. encouraged. 2. Ambulation encouraged. Case discussed with attending. Ena Peralta PGY-1 Patient seen and evaluated by me this am. Patient reports continued headaches however some improve ment with meds. Patient to be reassessed by anesthesia today and discharge pending anesthesia recomme ndations. Vital Signs Provider PP: Reviewed
[2017-12-28] MEDS: Oxycodone/Acetaminophen 5/325 mg Tab PO PRN (16:25)
[2017-12-29] MEDS: Lactated Ringer's 1,000 ML IV SCH ×2 (02:09→07:19)
[2017-12-29] MEDS: Oxycodone/Acetaminophen 5/325 mg Tab PO PRN (02:11)
[2017-12-29] MEDS: Simethicone 80 mg Chewtab PO SCH ×2 (04:00→10:00)
[2017-12-29] MEDS: Apap-Butalbital-Caffeine 325-50-40mg Tab PO PRN ×2 (05:51→08:14)
[2017-12-29] MEDS: Multivitamin With Minerals Tab PO SCH (08:14)
--- NOTE | 2017-12-29 09:42 | OBPPN ---
Datetime: 12/29/2017 07:48 PP Pain Prov: Within normal limits PP Nausea Prov: Denies PP Flatus Prov: Yes PP BM Prov: Yes PP Heart Prov: Normal PP Abdomen/Uterus Prov: Normal PP Lochia Prov: Normal PP Extremities Prov: Normal PP Impression Prov: Normal progression PP Plan Prov: Continue present management PP Progress Note Prov: 27 y/o POD5 s/p was seen and examined at bedside this AM. Lucrecia ent states headache is still present, but diminished to 4/10. Sphenopalatine ganglion block was perf ormed, which she states did not help. Patient is doing well otherwise _ reports (with f ormula supplementation) w/o difficulty. She continues to ambulate as tolerated with the headaches. Sh e has been voiding w/o difficulty, and +Flatus/-BM. Lochia is similar to menses volume. Patient denie s fever, chills, n/v/d, cp, sob, calf pain or dizziness. Plan for contraception is shot. VS: wnl GEN: laying supine Cardio: S1S2, no murmurs Lungs: clear breath sounds b/l Abdomen: Incision is clean, dry, and intact. BS+, fundus is at level of the umbilicus. EXT: calves nontender NEURO: AAOx3 A/P: 27 y/o s/p doing well on POD5 . 1. and ambulation encouraged. 2.Ibuprofen 600mg PRN for mild/mod pain _ Percocet 5-325mg for severe pain. 3.Discharge pending improvement of headache. Discussed with OBGYN attending Ena Hannah PGY-1 Patient seen and evaluated by me this am. Agree with above note. Patient will be evaluated by comfort reilly today. D/C planning after cleared by anesthesia. Vital Signs Provider PP: Reviewed; Within Normal Limits
--- NOTE | 2017-12-29 15:24 | OBPPN ---
Datetime: 12/29/2017 12:07 PP Pain Prov: Within normal limits PP Nausea Prov: Denies PP Flatus Prov: Yes PP BM Prov: Yes PP Heart Prov: Normal PP Lungs Prov: Normal PP Abdomen/Uterus Prov: Normal PP Lochia Prov: Normal PP Extremities Prov: Normal PP C/S Incision Prov: Normal PP Impression Prov: Normal progression PP Plan Prov: Continue present management PP Progress Note Prov: 27 y/o s/p POD 5 was seen at bedside and assessed and evaluate d for headache. Patient claims spinal headache is still present, but diminished to 4/10 and has not p rogressed or worsened. Sphenopalatine ganglion block was performed, which provided no relief. As per anethesia patient can be discharged with fioricet and percocet as needed for headache, patient was m eliza aware that she should come back to the ED if the pain gets any worse. She can follow up in the inic in a week if headahce still present, she should follow up with her post appt Wednesday in [facility]. Patient should ambulate as tolerated and lay flat when resting as w ell as keep hydrated. She has been voiding , +Flatus/+BM. Lochia is similar to menses volume. Patient denies fever, chills, n/v/d, cp, sob, calf pain or dizziness. Plan for contraception is depo shot. VS: BP 98/46 asymptomatic GEN: laying supine, NAD, AA0x3 Cardio: RRR, S1S2, no murmurs, rubs, gallops Lungs: B/L breath sounds heard, CTA Abdomen: Incision is clean, dry, and intact. BS+, fundus is at level of the umbilicus. EXT: calves nontender A/P: 27 y/o s/p doing well on POD5 . 1. Encouraged and ambulation as tolerated, lie supine when resting 2.Ibuprofen 600mg PRN for mild/mod pain _ Percocet 5-325mg for severe pain, Fioricet as needed for headache, keep hydrated 3. Continue prenatals 1 tab po daily 4. Follow up wound care appt Wednesday @3pm 12/31/17 in [facility] with Dr. Manning 5. No exercsize or heavy lifting Discussed with hotel registration clerk Jenny Woods MD PG Agree with above resident note. Patient cleared by anesthesia for discharge and discharged home to day. Patient given ER instructions and scheduled for follow up in clinic in 2 days. --Dr. Ramon Vital Signs Provider PP: Reviewed
[2017-12-29 18:56] VITALS: BP 98/45; PULSE 63; RESP 20; TEMP 98.2; O2SAT 98
== END 2017-12-29 14:32 | disposition home or self-care (01) | DRG 370 ==
LOC: H.EROB2 17:53 → H.L&D 18:57 → H.OB/GYN 12-25 00:45
PROVIDERS: ADMIT Obstetrics & Gynecology; ATTEND Obstetrics & Gynecology
PROC: 10D00Z1 Extraction of Products of Conception, Low, Open Approach (ICD-10-PCS; principal; 2017-12-24)
PROC: 4A1HXCZ Monitoring of Products of Conception, Cardiac Rate, External Approach (ICD-10-PCS; 2017-12-24)
PROC: 3E0T3BZ Introduction of Anesthetic Agent into Peripheral Nerves and Plexi, Percutaneous Approach (ICD-10-PCS; 2017-12-27)
DX: O48.0 Post-term pregnancy (principal); O74.5 Spinal and epidural anesthesia-induced headache during labor and delivery; O36.8130 Decreased fetal movements, third trimester, not applicable or unspecified; O76 Abnormality in fetal heart rate and rhythm complicating labor and delivery; Z3A.40 40 weeks gestation of pregnancy; Z37.0 Single live birth

== ENCOUNTER 2018-01-18 17:45 | Emergency (ER) | payer SELFPAY ==
[2018-01-18] MEDS ORDERED: Bacitracin 500 Units/gm Oint Foilpak UD ONE (19:24)
[2018-01-18 19:40] VITALS: BP 111/65; PULSE 72; RESP 14; TEMP 98
[2018-01-18 19:47] VITALS: O2SAT 98
--- NOTE | 2018-01-18 19:47 | ED PDOC ---
HPI: Wound Care - HPI Time Seen by Provider: 01/18/18 19:11 Chief Complaint (Nursing): Abdominal Pain Chief Complaint (Provider): wound check History Per: Patient Exam Limitations: no limitations Onset/Duration Of Symptoms: Persistent (x4 weeks) Current Symptoms Are (Timing): Still Present Additional Complaint(s): 27 year old female arrives s/p surgery performed on 12/25/17 with complaints of itching and pain to the right side of surgical scar. PAtient has wound check appointment scheduled for tomorrow. She denies any fever, chills, nausea, vomiting, or abnormal stools. PMD: Dr. Sultan Manning Past Medical History Reviewed: Historical Data, Nursing Documentation, Vital Signs Vital Signs: Last Vital Signs Temp 97.8 F 01/18/18 18:35 Pulse 73 01/18/18 18:35 Resp 18 01/18/18 18:35 BP 112/60 01/18/18 18:35 Pulse Ox 98 01/18/18 18:35 - Medical History PMH: Denies: Depression, Diabetes, HTN - Surgical History Surgical History: - Family History Family History: States: Unknown Family Hx - Social History Current smoker - smoking cessation education provided: No Alcohol: None Drugs: Denies - Home Medications Home Medications: Ambulatory Orders Medication Instructions Recorded Ferrous Sulfate [Feosol] 324 mg PO DAILY 12/24/17 Ibuprofen [Motrin Tab] 600 mg PO Q6H PRN #30 tab 12/27/17 Sennosides A and B [Senokot Tab] 17.2 mg PO HS #30 tab 12/27/17 Acetaminophen/Butalbital/Caf 1 tab PO Q4 PRN #30 tab 12/29/17 [Fioricet] oxyCODONE/Acetaminophen [Percocet 1 tab PO Q6 PRN #20 tab 12/29/17 5/325 mg Tab] Bacitracin Ointment [Bacitracin] 30 gm TOP DAILY #1 tube 01/18/18 Ibuprofen [Motrin Tab] 600 mg PO Q6 #30 tab 01/18/18 - Allergies Allergies/Adverse Reactions: Allergies Allergy/AdvReac Type Severity Reaction Status Date / Time No Known Allergies Allergy Verified 01/18/18 18:35 Review of Systems ROS Statement: Except As Marked, All Systems Reviewed And Found Negative Constitutional: Negative for: Fever, Chills Gastrointestinal: Positive for: Abdominal Pain (with itching to surgical site). Negative for: Nausea, Vomiting, Melena, Hematochezia Musculoskeletal: Negative for: Back Pain Physical Exam - Reviewed Nursing Documentation Reviewed: Yes Vital Signs Reviewed: Yes - Physical Exam Appears: Positive for: Well, Non-toxic, No Acute Distress Head Exam: Positive for: ATRAUMATIC, NORMAL INSPECTION, NORMOCEPHALIC Skin: Positive for: Normal Color, Warm, DRY Eye Exam: Positive for: EOMI, Normal appearance, PERRL Gastrointestinal/Abdominal: Positive for: Normal Exam, Bowel Sounds, Soft, Tenderness (healing scar with small area of opening on right edge and minimal tenderness beneath area). Negative for: Other (drainage, surrounding erythema, fluctuance or induration to surgical site) - ECG O2 Sat by Pulse Oximetry: 98 (RA) Pulse Ox Interpretation: Normal Medical Decision Making Medical Decision Making: A/P: 27 y/o presenting with wound check. No sign of cellulitis, fluid collection, or suspected wound dehiscence at this time. -- Motrin 600mg PO ordered. Bacitracin and dressing placed. Time: 1939 --Upon provider evaluation, patient is medically stable and requires no further treatment in the ED at this time. Patient's wound is placed in dressing, received Rx for Bacitracin and Motrin, and advised to follow up with scheduled wound check appointment tomorrow. Counseling was provided and all questions were answered regarding diagnosis. There is agreement to discharge plan. Return if symptoms persist or worsen. Clinical Impression: Itching Scribe Attestation: Documented by Yue Cho, acting as a scribe for Seven Robison MD. Provider Scribe Attestation: All medical record entries made by the Scribe were at my direction and personally dictated by me. I have reviewed the chart and agree that the record accurately reflects my personal performance of the history, physical exam, medical decision making, and the department course for this patient. I have also personally directed, reviewed, and agree with the discharge instructions and disposition. Disposition - Clinical Impression Clinical Impression: Itching - Patient ED Disposition Is Patient to be Admitted: No Counseled Patient/Family Regarding: Diagnosis, Need For Followup - Disposition [facility] Sultan Manning MD [Family Provider] - Disposition: Routine/Home Disposition Time: 19:40 Condition: GOOD Prescriptions: Bacitracin Ointment [Bacitracin] 30 gm TOP DAILY #1 tube Ibuprofen [Motrin Tab] 600 mg PO Q6 #30 tab Instructions: Wound Care, Itchy Skin Forms: [facility] (Mongolian) Print Language: YI
== END 2018-01-18 19:41 | disposition home or self-care (01) ==
LOC: H.ER 17:45
DX: L29.9 Pruritus, unspecified (principal); Z48.01 Encounter for change or removal of surgical wound dressing